=== PATIENT | male | born 1975 | race Caucasian/White ===

== ENCOUNTER 2018-03-21 16:41 | Emergency (ER) | payer MEDICAID, OTHER ==
[2018-03-21 17:21] VITALS: BP 138/88
--- NOTE | 2018-03-21 17:36 | UC ---
Throat Pain/Nasal Garrick HPI - HPI Summary HPI Summary: sinus pain and pressure x 2 weeks + nasal congestion, cough , pnd, no fever, no chills bilateral foot rash x 2 months, very itchy , red - History of Current Complaint Chief Complaint: UCGeneralIllness Stated Complaint: DIZZY/NAUSEA, DENTAL Time Seen by Provider: 03/21/18 17:13 Hx Obtained From: Patient Onset/Duration: Gradual Onset, Lasting Weeks - 2, Still Present Severity: Moderate Pain Intensity: 8 Cough: Nonproductive Associated Signs & Symptoms: Positive: Sinus Discomfort, Nasal Discharge, Rash - bilateral feet. Negative: Fever, Vomiting - Allergies/Home Medications Allergies/Adverse Reactions: Allergies Allergy/AdvReac Type Severity Reaction Status Date / Time erythromycin base Allergy GI Upset Verified 03/21/18 17:21 Home Medications: Home Medications Unsure Of Other Meds 03/21/18 [History] cloZAPine [Clozaril] 4 tab PO BEDTIME 03/21/18 [History Confirmed 03/21/18] PMH/Surg Hx/FS Hx/Imm Hx Psychological History: Schizophrenia - Surgical History Surgical History: Yes Surgery Procedure, Year, and Place: left knee. disclocated hip. hand - Family History Known Family History: Negative: Blood Disorder - Social History Alcohol Use: Occasionally Substance Use Type: Marijuana Substance Use Comment - Amount & Last Used: occasional Smoking Status (MU): Heavy Every Day Tobacco Smoker Type: Cigarettes Amount Used/How Often: 1/2-1 PPD Review of Systems Constitutional: Negative Skin: Rash Eyes: Negative ENT: Sore Throat, Ear Ache, Nasal Discharge, Sinus Congestion, Sinus Pain/ Tenderness Respiratory: Cough Cardiovascular: Negative Neurological: Headache Is Patient Immunocompromised?: No All Other Systems Reviewed And Are Negative: Yes Physical Exam Triage Information Reviewed: Yes Appearance: Well-Appearing, No Pain Distress, Well-Nourished Vital Signs: Initial Vital Signs Temp 98.3 F 03/21/18 17:14 Pulse 107 03/21/18 17:14 Resp 16 03/21/18 17:14 BP 138/88 03/21/18 17:14 Pulse Ox 98 03/21/18 17:14 Vital Signs Reviewed: Yes Eyes: Positive: Conjunctiva Clear ENT: Positive: Normal ENT inspection, Hearing grossly normal, Pharynx normal, Nasal drainage, TMs normal, Sinus tenderness Neck exam: Normal Neck: Positive: Supple, Nontender, No Lymphadenopathy Respiratory: Positive: Chest non-tender, Lungs clear, Normal breath sounds Cardiovascular: Positive: RRR, No Murmur, Pulses Normal Skin: Positive: rashes - bilateral feet: + erythema , macular rash Throat Pain/Nasal Course/Dx - Differential Dx/Diagnosis Provider Diagnoses: sinusitis. tinea pedis Discharge - Sign-Out/Discharge Documenting (check all that apply): Patient Departure - Discharge Plan Condition: Stable Disposition: HOME Prescriptions: Amoxicillin/Clavulanate TAB* [Augmentin TAB 875*] 875 mg PO BID #20 tab Ketoconazole 2 % CREAM (NF) [Nizoral 2% CREAM (NF)] 1 applic TOPICAL BID #60 gm Patient Education Materials: Athlete's Foot (ED), Sinusitis (ED) Referrals: No Primary Care Phys,NOPCP [Primary Care Provider] - 2 Weeks - Billing Disposition and Condition Condition: STABLE Disposition: Home
== END 2018-03-21 17:38 | disposition home or self-care (01) ==
LOC: UCCORT 16:41
DX: J32.9 Chronic sinusitis, unspecified (principal); B35.3 Tinea pedis; Z88.1 Allergy status to other antibiotic agents; F17.210 Nicotine dependence, cigarettes, uncomplicated
CPT/HCPCS: 99202; G0463

== ENCOUNTER 2019-06-15 10:48 | Emergency (ER) | payer OTHER ==
--- OUTSIDE RECORDS SUMMARY | 2019-06-15 11:33 | XMS REPORT | Continuity of Care Document ---
:1975 External Reference #:[id number] Author Name Brenda Carmen PA Address [address] [place] [address] Care Team Providers Name Role Phone Elisa Watson, PNP-BC, OPTOMETRIC TECHNOLOGIST, Ibclc Care Team Information Electronics Maintenance Technician [phone] - Family Problems Active Problems Provider Date Localized, primary osteoarthritis Zakia Husain PA Onset: 05/21/2018 Social History Type Date Description Comments Sex Unknown Tobacco Use Start: Unknown Patient is a current cigarette smoker, smokes every day Smoking Status Reviewed: 04/22/19 Patient is a current cigarette smoker, smokes every day ETOH Use Occasionally consumes alcohol Tobacco Use Start: Unknown Light tobacco smoker (10 or fewer cigarettes/day) Recreational Drug Use Marijuana Allergies, Adverse Reactions, Alerts Active Allergies Reaction Severity Comments Date Bee Sting 05/07/2018 Erythromycin 05/26/2018 Medications Active Medications SIG Qnty Indications Ordering Date Provider Zyrtec Allergy 1 by mouth every 30tabs L23.5 Peace Nguyen, 04/22/2019 10mg day at bedtime Tablets Aquaphor apply to the 50gm L23.5 Peace Nguyen, 04/22/2019 Ointment affected area of MD the legs twice daily for 5-7 days, as needed. Hydrocortisone apply twice to 30gm S30.861A Elisa Watson, 04/16/2019 2.5% Cream three times a PNP-BC, OPTOMETRIC TECHNOLOGIST, day Ibclc Ibuprofen take 1 tablet by 60tabs Yesenia Andrade, 01/30/2019 600mg Tablets mouth every 6-8 OPTOMETRIC TECHNOLOGIST hours as needed for pain. take with food. Dulcolax Stool 1 tab po bid as 60caps Elisa Watson, 12/04/2018 Softener needed PNP-BC, OPTOMETRIC TECHNOLOGIST, 100mg Capsules Ibclc Ventolin HFA Inhale 1 To 2 18units J45.21 Elisa Watson, 05/07/2018 108(90Base) Puffs Every 4 PNP-BC, OPTOMETRIC TECHNOLOGIST, mcg/Act Aerosol Hours as Needed Ibclc Aerochamber Plus as directed 1units J45.21 Elisa Watson, 05/07/2018 Adiel-Vu PNP-BC, OPTOMETRIC TECHNOLOGIST, Misc Ibclc Loratadine 1 by mouth every 30caps Elisa Watson, 10mg Capsules day PNP-BC, OPTOMETRIC TECHNOLOGIST, Ibclc Ranitidine 150 Maximum 1 by mouth twice 60tabs Elisa Watson, Strength a day PNP-BC, OPTOMETRIC TECHNOLOGIST, 150mg Tablets Ibclc Senna Plus 1 tab by mouth 60tabs Elisa Watson, 8.6-50mg at bedtime; december PNP-BC, OPTOMETRIC TECHNOLOGIST, Tablets increase to Ibclc 2x/day if needed. Carvedilol take one tablet 60tabs Elisa Watson, 6.25mg Tablets by mouth twice a PNP-BC, OPTOMETRIC TECHNOLOGIST, day Ibclc Epipen 2-Lc use as directed 2units Elisa Watson, 0.3mg/0.3ML as needed for PNP-BC, OPTOMETRIC TECHNOLOGIST, Solution Auto-Inject allergic Ibclc reaction Clozaril 4 at bedtime 120tabs Elisa Watson, 100mg Tablets PNP-BC, OPTOMETRIC TECHNOLOGIST, Ibclc Hydrocodone-Acetaminop Take One Tablet Unknown hen By Mouth Twice A 7.5-325mg Tablets Day Two Tablets History Medications Terbinafine HCL 1 by mouth every 84tabs Lawrence Ramos, 12/04/2018 - 250mg day for 84 days DPM 01/30/2019 Tablets Immunizations CPT Code Status Date Vaccine Lot # [id number] Given 08/20/2002 flu vaccination 20818 Given 10/25/1998 Tetnus Injection 29200 Given 06/13/1993 Influenza Virus Vaccine Vital Signs Date Vital Result Comment 04/22/2019 1:29pm BP Systolic 130 mmHg BP Diastolic 84 mmHg Body Temperature 97.4 F Heart Rate 90 /min Respiratory Rate 18 /min Height 74 inches 6'2" Weight 204.25 lb BMI (Body Mass Index) 26.2 kg/m2 BSA (Body Surface Area) 2.19 m2 [place] body weight in kilograms 86 kg O2 % BldC Oximetry 97 % 04/16/2019 3:16pm BP Systolic 120 mmHg BP Diastolic 78 mmHg Body Temperature 97.9 F Heart Rate 121 /min Respiratory Rate 19 /min Height 74 inches 6'2" Weight 206.25 lb BMI (Body Mass Index) 26.5 kg/m2 BSA (Body Surface Area) 2.20 m2 [place] body weight in kilograms 86 kg O2 % BldC Oximetry 98 % Results Test Date Facility Test Result H/L Range Note Liver Function 12/03/2018 [facility] Total Protein 6.7 g/dL Normal 6.4-8.2 1 [address] [place] [address] [phone] Albumin 4.0 g/dL Normal 3.4-5.0 Globulin 2.7 g/dL Normal 1.9-4.3 Alb/Glob 1.5 ratio Bilirubin,Total 0.6 mg/dL Normal 0.2-1.0 Bilirubin,Direct 0.1 mg/dL Normal 0.0-0.2 Bilirubin,Indirect 0.5 mg/dL Normal 0.0-0.9 Sgot/Ast 18 U/L Normal 15-37 SGPT/Alt 36 U/L Normal 12-78 Alkaline Phosphatase 79 U/L Normal 45-117 1 F20.0 (B35.1) Procedures Date Code Description Status 12/04/2018 94329 Pulse Oximetry Completed 11/24/2018 55494 Debridement Nails Any Method 6 Or More Completed 11/24/2018 00386 Pare Hyperkeratotic Lesion, Single Completed Medical Devices Description No Information Available Encounters Type Date Location Provider Dx Diagnosis Office Visit 04/16/2019 Family Medicine Elisa Watson, S30.861A Insect bite 3:30p Javier COLLADO PNP-BC, OPTOMETRIC TECHNOLOGIST, (nonvenomous) of Ibclc abdominal wall, init encntr Office Visit 01/30/2019 Family Medicine Yesenia Andrade, M25.561 Pain in right knee 1:15p Javier COLLADO OPTOMETRIC TECHNOLOGIST Office Visit 12/04/2018 Family Medicine Elisa Watson, J45.21 Mild intermittent 1:30p Javier COLLADO PNP-BC, OPTOMETRIC TECHNOLOGIST, asthma with (acute) Ibclc exacerbation J30.9 Allergic rhinitis, unspecified F17.210 Nicotine dependence, cigarettes, uncomplicated Assessments Date Code Description Provider 04/22/2019 L23.5 Allergic contact dermatitis due to Brenda Carmen PA other chemical products 04/16/2019 S30.861A Insect bite (nonvenomous) of Elisa Watson PNP-BC, OPTOMETRIC TECHNOLOGIST, abdominal wall, initial encounter Ibclc 01/30/2019 M25.561 Pain in right knee Yesenia Andrade, OPTOMETRIC TECHNOLOGIST 12/04/2018 J45.21 Mild intermittent asthma with Elisa Watson, PNP-BC, OPTOMETRIC TECHNOLOGIST, (acute) exacerbation Ibclc 12/04/2018 J30.9 Allergic rhinitis, unspecified Elisa Watson, BRODY-BC, OPTOMETRIC TECHNOLOGIST, Ibclc 12/04/2018 F17.210 Nicotine dependence, cigarettes, Elisa Watson, PNP-BC, OPTOMETRIC TECHNOLOGIST, uncomplicated Ibclc 11/24/2018 B35.1 Tinea unguium Lawrence Ramos DPM 11/24/2018 M79.675 Pain in left toe(s) Lawrence Ramos DPM 11/24/2018 M79.674 Pain in right toe(s) Lawrence Ramos DPM 11/24/2018 L85.8 Other specified epidermal Lawrence Ramos DPM thickening 11/24/2018 M79.671 Pain in right foot Lawrence Ramos DPM Plan of Treatment No Information Available Functional Status Description No Information Available Mental Status Description No Information Available Referrals Description No Information Available
--- OUTSIDE RECORDS SUMMARY | 2019-06-15 11:33 | XMS REPORT | Continuity of Care Document ---
:1975 External Reference #:[id number] Author Name Elisa Watson PNP-BC, MICA INSPECTOR, Ibclc Address [address] [place] [address] [address] [place] [address] Care Team Providers Name Role Phone Elisa Watson PNP-BC, MICA INSPECTOR, Ibclc Care Team Information Network Technical Analyst [phone] - Family Problems Active Problems Provider Date Localized, primary osteoarthritis Zakia Huasin PA Onset: 05/21/2018 Social History Type Date Description Comments Sex Unknown Tobacco Use Start: Unknown Patient is a current cigarette smoker, smokes every day Smoking Status Reviewed: 04/16/19 Patient is a current cigarette smoker, smokes every day ETOH Use Occasionally consumes alcohol Tobacco Use Start: Unknown Light tobacco smoker (10 or fewer cigarettes/day) Recreational Drug Use Marijuana Allergies, Adverse Reactions, Alerts Active Allergies Reaction Severity Comments Date Bee Sting 05/07/2018 Erythromycin 05/26/2018 Medications Active Medications SIG Qnty Indications Ordering Date Provider Hydrocortisone apply twice to 30gm S30.861A Elisa Watson, 04/16/2019 2.5% Cream three times a PNP-BC, MICA INSPECTOR, day Ibclc Ibuprofen take 1 tablet by 60tabs Yesenia Andrade, 01/30/2019 600mg Tablets mouth every 6-8 MICA INSPECTOR hours as needed for pain. take with food. Dulcolax Stool 1 tab po bid as 60caps Elisa Watson, 12/04/2018 Softener needed PNP-BC, MICA INSPECTOR, 100mg Capsules Ibclc Ventolin HFA Inhale 1 To 2 18units J45.21 Elisa Watson, 05/07/2018 108(90Base) Puffs Every 4 PNP-BC, MICA INSPECTOR, mcg/Act Aerosol Hours as Needed Ibclc Aerochamber Plus as directed 1units J45.21 Elisa Watson, 05/07/2018 Adiel-Vu PNP-BC, MICA INSPECTOR, Misc Ibclc Loratadine 1 by mouth every 30caps Elisa Watson, 10mg Capsules day PNP-BC, MICA INSPECTOR, Ibclc Ranitidine 150 Maximum 1 by mouth twice 60tabs Elisa Watson, Strength a day PNP-BC, MICA INSPECTOR, 150mg Tablets Ibclc Senna Plus 1 tab by mouth 60tabs Elisa Watson, 8.6-50mg at bedtime; december PNP-BC, MICA INSPECTOR, Tablets increase to Ibclc 2x/day if needed. Carvedilol take one tablet 60tabs Elisa Watson, 6.25mg Tablets by mouth twice a PNP-BC, MICA INSPECTOR, day Ibclc Epipen 2-Lc use as directed 2units Elisa Watson, 0.3mg/0.3ML as needed for PNP-BC, MICA INSPECTOR, Solution Auto-Inject allergic Ibclc reaction Clozaril 4 at bedtime 120tabs Elisa Watson, 100mg Tablets PNP-BC, MICA INSPECTOR, Ibclc Hydrocodone-Acetaminop Take One Tablet Unknown hen By Mouth Twice A 7.5-325mg Tablets Day Two Tablets History Medications Terbinafine HCL 1 by mouth every 84tabs Lawrence Ramos, 12/04/2018 - 250mg day for 84 days DPM 01/30/2019 Tablets Terbinafine HCL 1 by mouth every 84tabs Lawrence Ramos, 10/20/2018 - 250mg day for 84 days DPM 12/04/2018 Tablets Immunizations CPT Code Status Date Vaccine Lot # [id number] Given 08/20/2002 flu vaccination 57745 Given 10/25/1998 Tetnus Injection 24862 Given 06/13/1993 Influenza Virus Vaccine Vital Signs Date Vital Result Comment 04/16/2019 3:16pm BP Systolic 120 mmHg BP Diastolic 78 mmHg Body Temperature 97.9 F Heart Rate 121 /min Respiratory Rate 19 /min Height 74 inches 6'2" Weight 206.25 lb BMI (Body Mass Index) 26.5 kg/m2 BSA (Body Surface Area) 2.20 m2 [place] body weight in kilograms 86 kg O2 % BldC Oximetry 98 % 01/30/2019 1:13pm BP Systolic 122 mmHg BP Diastolic 84 mmHg Body Temperature 97.8 F Heart Rate 88 /min Weight 214.00 lb O2 % BldC Oximetry 96 % Results Test Date Facility Test Result H/L Range Note Liver Function 12/03/2018 [facility] Total Protein 6.7 g/dL Normal 6.4-8.2 1 [address] [place] [address] [phone] Albumin 4.0 g/dL Normal 3.4-5.0 Globulin 2.7 g/dL Normal 1.9-4.3 Alb/Glob 1.5 ratio Bilirubin,Total 0.6 mg/dL Normal 0.2-1.0 Bilirubin,Direct 0.1 mg/dL Normal 0.0-0.2 Bilirubin,Indirect 0.5 mg/dL Normal 0.0-0.9 Sgot/Ast 18 U/L Normal 15-37 SGPT/Alt 36 U/L Normal 12-78 Alkaline Phosphatase 79 U/L Normal 45-117 1 F20.0 (B35.1) Procedures Date Code Description Status 12/04/2018 04036 Pulse Oximetry Completed 11/24/2018 29701 Debridement Nails Any Method 6 Or More Completed 11/24/2018 54649 Pare Hyperkeratotic Lesion, Single Completed Medical Devices Description No Information Available Encounters Type Date Location Provider Dx Diagnosis Office Visit 04/16/2019 Family Medicine Elisa Watson, S30.861A Insect bite 3:30p [address] PNP-BC, MICA INSPECTOR, (nonvenomous) of Ibclc abdominal wall, init encntr Office Visit 01/30/2019 Family Medicine Yesenia Andrade, M25.561 Pain in right knee 1:15p [address] MICA INSPECTOR Office Visit 12/04/2018 Family Medicine Elisa Watson, J45.21 Mild intermittent 1:30p [address] PNP-BC, MICA INSPECTOR, asthma with (acute) Ibclc exacerbation J30.9 Allergic rhinitis, unspecified F17.210 Nicotine dependence, cigarettes, uncomplicated Assessments Date Code Description Provider 04/16/2019 S30.861A Insect bite (nonvenomous) of Elisa Watson PNP-BC, MICA INSPECTOR, abdominal wall, initial encounter Ibclc 01/30/2019 M25.561 Pain in right knee Yesenia Andrade, TIFFANIE 12/04/2018 J45.21 Mild intermittent asthma with Elisa Watson PNP-BC, MICA INSPECTOR, (acute) exacerbation Ibclc 12/04/2018 J30.9 Allergic rhinitis, unspecified Elisa Watson PNP-BC, MICA INSPECTOR, Ibclc 12/04/2018 F17.210 Nicotine dependence, cigarettes, Elisa Watson PNP-BC, MICA INSPECTOR, uncomplicated Ibclc 11/24/2018 B35.1 Tinea unguium Lawrence [...]
[2019-06-15 11:45] VITALS: BP 135/82
--- NOTE | 2019-06-15 12:12 | UC ---
Respiratory Complaint HPI - HPI Summary HPI Summary: 43 yo male presents with cough. He tells me that over the last 2 weeks he has had a productive cough. He was seen at [facility] a few days ago and prescribed a cough medication - per pt. Has been taking this and has not been helping. He has felt feverish, but has not taken his temperature. He smokes daily. Also has some sinus congestion and pain. Has been taking mucinex and OTC cold medication with no relief. Denies sore throat, SOB, chest pain, n/v - History of Current Complaint Chief Complaint: UCGeneralIllness Stated Complaint: COUGH,BAINS,DIZZINESS Time Seen by Provider: 06/15/19 12:12 Hx Obtained From: Patient Onset/Duration: Gradual Onset Severity Initially: Mild Severity Currently: Mild Pain Intensity: 2 Pain Scale Used: 0-10 Numeric - Allergies/Home Medications Allergies/Adverse Reactions: Allergies Allergy/AdvReac Type Severity Reaction Status Date / Time erythromycin base AdvReac GI Upset Verified 06/15/19 11:45 Home Medications: Home Medications Albuterol HFA INHALER* [Ventolin HFA Inhaler*] 2 puff INH Q4H PRN 06/15/19 [ History Confirmed 06/15/19] Loratadine 10 mg PO DAILY 06/15/19 [History Confirmed 06/15/19] guaiFENesin ER TAB [Mucinex*] 600 mg PO BID PRN 06/15/19 [History Confirmed ] PMH/Surg Hx/FS Hx/Imm Hx Psychological History: Anxiety - Surgical History Surgical History: Yes Surgery Procedure, Year, and Place: left knee; A BABY - HIP DYSPLAGIA W/ CAST - NO SURG; Rt THUMB - REPAIR TENDON - Family History Known Family History: Positive: None Negative: Blood Disorder - Social History Lives: With Family Alcohol Use: Occasionally Substance Use Type: Marijuana Substance Use Comment - Amount & Last Used: occasional Smoking Status (MU): Heavy Every Day Tobacco Smoker Type: Cigarettes Amount Used/How Often: 1/2-1 PPD Review of Systems All Other Systems Reviewed And Are Negative: No Constitutional: Positive: Fever Skin: Positive: Negative Eyes: Positive: Negative ENT: Positive: Nasal Discharge, Sinus Congestion Respiratory: Positive: Cough Cardiovascular: Positive: Negative Gastrointestinal: Positive: Negative Neurological: Positive: Negative Psychological: Positive: Negative Physical Exam - Summary Physical Exam Summary: GENERAL: NAD. WDWN. No pain distress. SKIN: No rashes, sores, lesions, or open wounds. HEENT: Head: AT/NC Eyes: Conjunctiva clear without inflammation or discharge. Ears: Hearing grossly normal. TMs intact, no bulging, erythema, or edema. Nose: Nasal mucosa pink and moist. TTP maxillary > frontal sinus. Throat: Posterior oropharynx without exudates, erythema, or tonsillar enlargement. Uvula midline. NECK: Supple. Nontender. No lymphadenopathy. CHEST: Moderate wheezing throughout. No r/r. No accessory muscle use. Breathing comfortably and in no distress. CV: RRR. Pulses intact. Cap refill <2seconds NEURO: Alert. PSYCH: Age appropriate behavior. Triage Information Reviewed: Yes Vital Signs: Initial Vital Signs Temp 97.9 F 06/15/19 11:41 Pulse 97 06/15/19 11:41 Resp 18 06/15/19 11:41 BP 135/82 06/15/19 11:41 Pulse Ox 97 06/15/19 11:41 Vital Signs Reviewed: Yes Diagnostics - Radiology CXR Radiology Interpretation Completed By: Radiologist Summary of Radiographic Findings: IMPRESSION: No acute cardiopulmonary process by radiograph. Respiratory Course/Dx - Course Course Of Treatment: CXR as above. In the clinic pt was given a duoneb treatment and dexamethasone for his suspected bronchitis. Will rx for anbx and prednisone. He does have albuterol inhaler at home - advised to keep using this - Differential Dx/Diagnosis Provider Diagnosis: Bronchitis Discharge ED - Sign-Out/Discharge Documenting (check all that apply): Patient Departure All imaging exams completed and their final reports reviewed: Yes - Discharge Plan Condition: Stable Disposition: HOME Prescriptions: Amoxicillin/Clavulanate TAB* [Augmentin TAB 875*] 875 mg PO BID #14 tab predniSONE TAB* [Deltasone 20 MG TAB*] 40 mg PO DAILY #10 tab Patient Education Materials: Acute Bronchitis (ED) Forms: *Gen. Provider Communication Referrals: Elisa Watson NP [Primary Care Provider] - Additional Instructions: If you develop a fever, shortness of breath, chest pain, new or worsening symptoms - please call your PCP or go to the ED immediately. Continue using your inhaler at home as prescribed - Billing Disposition and Condition Condition: STABLE Disposition: Home - Attestation Statements Provider Attestation: I was available for consult. This patient was seen by the PETE. The patient was not presented to, seen by, or examined by me. -Sukumar
[2019-06-15] MEDS ORDERED: Dexamethasone TAB* 4 MG PO ONE (12:16)
[2019-06-15] MEDS ORDERED: Albuterol/Ipratropium NEB.SOL* Albuterol 2.5 MG/Ipratropium 0.5 MG 3 ML INH ONE (12:16)
== END 2019-06-15 12:51 | disposition home or self-care (01) ==
LOC: UCCORT 10:48
DX: J40 Bronchitis, not specified as acute or chronic (principal); F17.210 Nicotine dependence, cigarettes, uncomplicated; R09.81 Nasal congestion; R09.89 Other specified symptoms and signs involving the circulatory and respiratory systems; Z88.1 Allergy status to other antibiotic agents
CPT/HCPCS: 71046; 99212; A9270-GY; G0463; J8540

== ENCOUNTER 2019-10-10 11:13 | Emergency (ER) | payer OTHER ==
--- OUTSIDE RECORDS SUMMARY | 2019-10-10 11:22 | XMS REPORT | Continuity of Care Document ---
:1975 External Reference #:[id number] Author Name Wilian Anders MD Address [address] [place] [id number] Care Team Providers Name Role Phone Elisa Watson, PNP-BC, KINDERGARTEN CLASSROOM TEACHER, Ibclc Care Team Information Road Tester [phone] - Family Problems Active Problems Provider Date Localized, primary osteoarthritis Zakia Husain PA Onset: 05/21/2018 Social History Type Date Description Comments Sex Unknown Tobacco Use Start: Unknown Patient is a current cigarette smoker, smokes every day Smoking Status Reviewed: 09/14/19 Patient is a current cigarette smoker, smokes every day ETOH Use Occasionally consumes alcohol Tobacco Use Start: Unknown Light tobacco smoker (10 or fewer cigarettes/day) Recreational Drug Use Marijuana Allergies, Adverse Reactions, Alerts Active Allergies Reaction Severity Comments Date Bee Sting 05/07/2018 Erythromycin 05/26/2018 Medications Active Medications SIG Qnty Indications Ordering Date Provider Saline Nasal [place] 2 sprays 1units J06.9 Wilian Anders MD 09/14/2019 0.65% intranasal every Solution 2 hours congestion or nasal dryness Robitussin 12 Hour 10ml by mouth 178ml J06.9 Wilian Anders MD 09/14/2019 Cough Relief every 12 hours as 30mg/5ML needed Suer Albuterol Sulfate nebulized every 4 2boxes J44.9 Elisa Watson, 08/12/2019 hours as needed PNP-BC, KINDERGARTEN CLASSROOM TEACHER, (2.5mg/3ML) 0.083% Ibclc Nebulizer Nebulizer to be used as 1units J44.9 Elisa Watson, 08/12/2019 Device directed PNP-BC, KINDERGARTEN CLASSROOM TEACHER, Ibclc Nebulizer as directed 1units J44.9 Elisa Watson, 08/12/2019 Kit/Tubing/Mouthpiece PNP-BC, KINDERGARTEN CLASSROOM TEACHER, Ibclc Kit SM Acid Shipping Point Inspector Take One Tablet 60tabs Elisa Watson, 07/23/2019 Maximum Strength By Mouth Twice A PNP-BC, KINDERGARTEN CLASSROOM TEACHER, 150mg Day Ibclc Tablets Senna-S Take One Tablet 60tabs Elisa Watson, 07/03/2019 8.6-50mg Tablets By Mouth AT PNP-BC, KINDERGARTEN CLASSROOM TEACHER, Bedtime,December Ibclc Increase To Two Times A Day If Needed Hydrocortisone apply twice to 30gm S30.861A Elisa Watson, 04/16/2019 2.5% Cream three times a day PNP-BC, KINDERGARTEN CLASSROOM TEACHER, Ibclc Ibuprofen take 1 tablet by 60tabs Elisa Watson, 01/30/2019 600mg Tablets mouth every 6-8 PNP-BC, KINDERGARTEN CLASSROOM TEACHER, hours as needed Ibclc for pain. take with food. Dulcolax Stool 1 tab by mouth 60caps Elisa Watson, 12/04/2018 Softener twice a day as PNP-BC, KINDERGARTEN CLASSROOM TEACHER, 100mg Capsules needed Ibclc Aerochamber Plus as directed 1units J45.21 Elisa Watson, 05/07/2018 Adiel-Vu PNP-BC, KINDERGARTEN CLASSROOM TEACHER, Misc Ibclc Ventolin HFA Inhale 1 To 2 18units J45.21 Aftab, 05/07/2018 108(90Base) Puffs Every 4 MD Christina, mcg/Act Aerosol Hours as Needed PHD Loratadine take one tablet 30tabs Elisa Watson, 10mg Tablets by mouth every PNP-BC, KINDERGARTEN CLASSROOM TEACHER, day Ibclc Carvedilol take one tablet 60tabs Elisa Watson, 6.25mg Tablets by mouth twice a PNP-BC, KINDERGARTEN CLASSROOM TEACHER, day Ibclc Epipen 2-Lc use as directed 2units Elisa Watosn, 0.3mg/0.3ML as needed for PNP-BC, KINDERGARTEN CLASSROOM TEACHER, Solution Auto-Inject allergic reaction Ibclc Clozaril 4 at bedtime 120tabs Elisa Watson, 100mg Tablets PNP-BC, KINDERGARTEN CLASSROOM TEACHER, Ibclc Bupropion Krystal, Hydrochloride ER (XL) Angelica 150mg Tablets ER 24HR Nicotine Krystal, 21mg/24HR Angelica Patches 24HR History Medications Stool Softener/Laxative Take One Tablet 60tabs Elisa Watson, 05/04/2019 - By Mouth Every PNP-TIFFANIE MUHAMMAD, 07/03/2019 50-8.6mg Tablets Evening; December Ibclc Increase To Two Tablets Daily If Needed Zyrtec Allergy 1 by mouth every 30tabs L23.5 Patrick, 04/22/2019 - 10mg Tablets day at bedtime MD Peace 05/07/2019 Aquaphor apply to the 50gm L23.5 Patrick 04/22/2019 - Ointment affected area of MD Peace 05/02/2019 the legs twice daily for 5-7 days, as needed. Immunizations CPT Code Status Date Vaccine Lot # [id number] Given 08/12/2019 Pneumovax Injection [id number] Given 08/12/2019 Influenza Virus Vaccine, Quadrivalent, 36 Mos+, [id number] 19034 Given 08/20/2002 flu vaccination 18292 Given 10/25/1998 Tetnus Injection 00315 Given 06/13/1993 Influenza Virus Vaccine Vital Signs Date Vital Result Comment 09/14/2019 1:27pm BP Systolic 126 mmHg BP Diastolic 70 mmHg Body Temperature 97.5 F Heart Rate 82 /min Respiratory Rate 18 /min Height 73.5 inches 6'1.50" Weight 198.38 lb BMI (Body Mass Index) 25.8 kg/m2 BSA (Body Surface Area) 2.16 m2 [place] body weight in kilograms 85 kg O2 % BldC Oximetry 98 % 08/12/2019 10:17am BP Systolic 126 mmHg BP Diastolic 82 mmHg Body Temperature 98.8 F Heart Rate 102 /min Respiratory Rate 18 /min Height 73.5 inches 6'1.50" Weight 208.00 lb BMI (Body Mass Index) 27.1 kg/m2 BSA (Body Surface Area) 2.20 m2 [place] body weight in kilograms 85 kg Results Test Acquired Date Facility Test Result H/L Range Note Influenza A/B 07/21/2019 [facility] Influenza A Negative (Negative) [address] Antigen [place], [place] [id number] [phone] Influenza B Antigen Negative (Negative) 2 Ua RFX Micro & Culture 05/06/2019 [facility] Urine Color YELLOW Yellow [address] [place] [address] [phone] Urine Clarity SL CLOUDY Clear Urine Glucose - Dipstick NEGATIVE mg/dL Negative Urine Bilirubin - Dipstick NEGATIVE Negative Urine Ketone NEGATIVE mg/dL Negative Urine Specific [place] 1.020 Normal 1.010-1.030 Urine Blood NEGATIVE 0-2 Urine PH 5.0 Low 6.5-7.5 Urine Protein - Dipstick NEGATIVE mg/dL Negative Urine Urobilinogen - Dipstick 0.2 E.U./dL Normal 0.2-1.0 Urine Nitrite - Dipstick NEGATIVE Negative Urine Leuk Esterase NEGATIVE Negative Source: URINE, CLEAN CAT <SEE NOTE> 4 CBC W/Automated 05/06/2019 [facility] White Blood 7.3 K/uL Normal 3.4-10.[address] [place] [address] [phone] Red Blood Count 5.11 M/uL Normal 4.20-5.80 Hemoglobin 15.5 gm/dL Normal 12.8-17.0 Hematocrit 44.3 % Normal 38.0-48.0 Mean Cell Volume 86.7 fl Normal 80.0-96.0 Mean Corpuscular HGB 30.3 pg Normal 27.0-33.0 Mean Corpuscular HGB Conc 35.0 g/dL Normal 31.7-36.0 Platelet Count 213 K/uL Normal 155-360 Red Cell Distri Width SD 40.5 fl Normal 36-51 Red Cell Distri Width %CV 12.9 % Normal 11.6-15.8 Mean Platelet Volume 10.0 fl Normal 6.6-10.6 Neut% 66.1 % Normal 33.0-73.0 Lymph % 21.4 % Normal 20.0-42.0 [place] % 10.2 % High 0.0-10.0 Eo% 1.5 % Normal 0.0-6.6 Bas% 0.3 % Normal 0.0-1.1 Immature Grans 0.5 % Normal 0.0-5.0 NRBC % 0.0 /100WBC < 10/ 100 WBC Neut# 4.82 K/uL Normal 1.8-7.0 Lymph # 1.56 K/uL Normal 1.0-4.0 [place] # 0.74 K/uL Normal 0.0-0.8 Eos # 0.11 K/uL Normal 0.0-0.5 Baso # 0.02 K/uL Normal 0.0-0.1 Immature Grans Absolute 0.04 K/uL NRBC # 0.00 K/uL 1 DIZZY, HOT/COLD, VOMITING 2 Please Note: A POSITIVE result for influenza A and/or B antigen does not rule out a co-infection with other pathogens or identify any specific influenza A virus subtype. A NEGATIVE result for influenza A and/or B antigen does not preclude influenza virus infection and should not be the sole basis for treatment or other management decisions, since the antigen present in the specimen may be below the detection limit of the test. A NEGATIVE result is PRESUMPTIVE and it is recommended these results be confirmed by virus culture or an FDA-cleared influenza A and B molecular assay. Method: BD Veritor Chromatographic immunoassay 3 NAUSEA,DIZZINESS,POSS BRONCHITIS 4 URINE, CLEAN CATCH Procedures Date Code Description Status 07/29/2019 81238 Debridement Nails Any Method 1-5 Completed 07/29/2019 38912 Pare Hyperkeratotic Lesion, 2-4 Completed 04/24/2019 30827 Debridement Nails Any Method 1-5 Completed Medical Devices Description No Information Available Encounters Type Date Location Provider Dx Diagnosis Office Visit 08/12/2019 Family Medicine Elisa Watson, J44.9 Chronic obstructive 10:[address]a [address] PNP-BC, KINDERGARTEN CLASSROOM TEACHER, pulmonary disease, Ibclc unspecified H90.12 Condctv hear loss, uni, left ear, w unrestr hear cntra side F17.210 Nicotine dependence, cigarettes, uncomplicated Z23 Encounter for immunization Z71.6 Tobacco abuse counseling Office Visit 04/22/2019 1:30p Family Medicine Brenda Carmen, L23.[address] PA dermatitis due to other chemical products Office Visit 04/16/2019 3:30p Family Medicine Elisa Watson, S30.861A Insect bite [address] PNP-BC, KINDERGARTEN CLASSROOM TEACHER, (nonvenomous) of Ibclc abdominal wall, init encntr Assessments Date Code Description Provider 09/14/2019 J06.9 Acute upper respiratory infection, Wilian Anders MD unspecified 09/14/2019 K02.9 Dental caries, unspecified Wilian Anders MD 08/12/2019 J44.9 Chronic obstructive pulmonary Elisa Watson, PNP-BC, KINDERGARTEN CLASSROOM TEACHER, disease, unspecified Ibclc 08/12/2019 H90.12 Conductive hearing loss, Elisa Watson PNP-BC, KINDERGARTEN CLASSROOM TEACHER, unilateral, left ear, with Ibclc unrestricted hearing on the contralateral side 08/12/2019 F17.210 Nicotine dependence, cigarettes, Elisa Watson PNP-BC, KINDERGARTEN CLASSROOM TEACHER, uncomplicated Ibclc 08/12/2019 Z23 Encounter for immunization Elisa Watson PNP-BC, KINDERGARTEN CLASSROOM TEACHER, Ibclc 08/12/2019 Z71.6 Tobacco abuse counseling Elisa Watson PNP-BC, KINDERGARTEN CLASSROOM TEACHER, Ibclc 07/29/2019 B35.1 Tinea unguium Lawrence Ramos, DP 07/29/2019 M79.674 Pain in right toe(s) Lawrence Ramos, DP 07/29/2019 L84 Corns and callosities Lawrence Ramos, DP 07/29/2019 L85.8 Other specified epidermal Lawrence Ramos, DP thickening 07/29/2019 M79.671 Pain in right foot Lawrence Ramos DP 07/29/2019 Q66.72 Congenital pes cavus, left foot Lawrence Ramos, DP 07/29/2019 Q66.71 Congenital pes cavus, right foot Lawrence Ramos, DPM 07/29/2019 M20.12 Hallux valgus (acquired), left foot Lawrence Ramos, DPM 07/29/2019 M20.11 Hallux valgus (acquired), right Lawrence Ramos, AKASH foot 04/24/2019 B35.1 Tinea unguium Lawrence Raoms, DP 04/24/2019 M79.674 Pain in right toe(s) Lawrence Ramos DP 04/24/2019 M79.675 Pain in left toe(s) Lawrence Ramos DPM 04/24/2019 Q66.7 Congenital pes cavus Lawrence Ramos DP 04/24/2019 M20.12 Hallux valgus (acquired), left foot Lawrence Ramos DPM 04/24/2019 M20.11 Hallux valgus (acquired), right Lawrence Ramos DP foot 04/22/2019 L23.5 Allergic contact dermatitis due to Brenda Cramen PA other chemical products 04/16/2019 S30.861A Insect bite (nonvenomous) of Elisa Watson, PNP-BC, KINDERGARTEN CLASSROOM TEACHER, abdominal wall, initial encounter Ibclc Plan of Treatment Future Appointment(s):11/05/2019 1:00 pm - Lawrence Ramos DPM at Podiatry Whgqdd8309/14/2019 - Wilian Anders MDJ06.9 Acute upper respiratory infection, unspecifiedNew Medication:Saline Nasal [place] 0.65 % - 2 sprays intranasal every 2 hours congestion or nasal drynessRobitussin 12 Hour Cough Relief 30 mg/5ML - 10ml by mouth every 12 hours as maznzuI00.9 Dental caries, unspecified Functional Status Description No Information Available Mental Status Description No Information Available Referrals Refer to Reason for Referral Status Appt Date Lawrence Ramos DPM Created [address] [place] [address] [phone]
[2019-10-10 12:12] VITALS: BP 135/87
--- NOTE | 2019-10-10 12:23 | UC ---
Dental HPI - HPI Summary HPI Summary: Pt presents with c/o tender,swollen, itchy lower gums that began immediately post tooth extraction on 10/07/19, Pt had 7 teeth extracted at [facility]. Pt states that gums are itchy, painful and swollen. - History of Current Complaint Chief Complaint: UCDentalProblem Stated Complaint: ORAL Time Seen by Provider: 10/10/19 12:13 Hx Obtained From: Patient Onset/Duration: Sudden Onset, Lasting Days, Still Present Severity: Severe Pain Intensity: 10 Aggravating Factor(s): Heat, Cold, Chewing Related History: Previous Dental Care on Same Tooth, Other - post teeth extraction - Allergies/Home Medications Allergies/Adverse Reactions: Allergies Allergy/AdvReac Type Severity Reaction Status Date / Time erythromycin base AdvReac GI Upset Verified 10/10/19 12:10 Home Medications: Home Medications Naproxen TAB* [Naprosyn 375 mg TAB*] 500 mg PO Q8H PRN 10/10/19 [History Confirmed 10/10/19] PMH/Surg Hx/FS Hx/Imm Hx Previously Healthy: Yes - Surgical History Surgical History: Yes Surgery Procedure, Year, and Place: left knee; A BABY - HIP DYSPLAGIA W/ CAST - NO SURG; Rt THUMB - REPAIR TENDON - Family History Known Family History: Positive: Cardiac Disease Negative: Blood Disorder - Social History Occupation: Unemployed Lives: With Family Alcohol Use: Occasionally Substance Use Type: Marijuana Substance Use Comment - Amount & Last Used: occasional Smoking Status (MU): Heavy Every Day Tobacco Smoker Type: Cigarettes Amount Used/How Often: 1/2-1 PPD Have You Smoked in the Last Year: Yes Review of Systems All Other Systems Reviewed And Are Negative: Yes Constitutional: Positive: Negative Skin: Positive: Negative Eyes: Positive: Negative ENT: Positive: Dental Pain, Other - recent dental trauma Respiratory: Positive: Other - wheezing Cardiovascular: Positive: Negative Gastrointestinal: Positive: Negative Genitourinary: Positive: Negative Motor: Positive: Negative Neurovascular: Positive: Negative Musculoskeletal: Positive: Negative Neurological: Positive: Negative Psychological: Positive: Negative Is Patient Immunocompromised?: No Physical Exam Triage Information Reviewed: Yes Appearance: Pain Distress Vital Signs: Initial Vital Signs Temp 97.2 F 10/10/19 12:08 Pulse 105 10/10/19 12:08 Resp 17 10/10/19 12:08 BP 135/87 10/10/19 12:08 Pulse Ox 97 10/10/19 12:08 Vital Signs Reviewed: Yes Eye Exam: Normal ENT Exam: Normal Dental: Positive: Other: - swelling of lower gum, mild erythema, evidence of teeth extraction. Neck exam: Normal Respiratory: Positive: Decreased breath sounds, Wheezing Cardiovascular: Positive: Tachycardia Musculoskeletal Exam: Normal Neurological Exam: Normal Psychological Exam: Normal Skin Exam: Normal Dental Complaint Course/Dx - Differential Dx/Diagnosis Differential Diagnosis/Dx: Peridontic Disease, Post Extraction Pain Provider Diagnosis: Status post tooth extraction, Gum inflammation, Wheezing Discharge ED - Sign-Out/Discharge Documenting (check all that apply): Patient Departure All imaging exams completed and their final reports reviewed: No Studies - Discharge Plan Condition: Stable Disposition: HOME Prescriptions: Amoxicillin PO (*) [Amoxicillin 875 MG (*)] 875 mg PO Q12H #20 tab Lidocaine 2% VISCOUS* [Xylocaine 2% Viscous*] 15 ml SWISH SPIT Q4H PRN #1 btl PRN Reason: Pain - Mild predniSONE 10 mg TAB [Deltasone 10 MG TAB*] 30 mg PO DAILY #12 tab Patient Education Materials: Acute Dental Trauma (ED), Tooth Extraction (DC) Referrals: Elisa Watson NP [Primary Care Provider] - If Needed Additional Instructions: Please follow up with your Dental care provider as soon as possible. - Billing Disposition and Condition Condition: STABLE Disposition: Home
== END 2019-10-10 12:35 | disposition home or self-care (01) ==
LOC: UCCORT 11:13
DX: K05.10 Chronic gingivitis, plaque induced (principal); R06.2 Wheezing; F17.210 Nicotine dependence, cigarettes, uncomplicated; Z98.890 Other specified postprocedural states; Z88.1 Allergy status to other antibiotic agents
CPT/HCPCS: 99212; G0463

== ENCOUNTER 2019-11-10 12:59 | Emergency (ER) | payer OTHER ==
--- OUTSIDE RECORDS SUMMARY | 2019-11-10 13:28 | XMS REPORT | Continuity of Care Document ---
:1975 External Reference #:[id number] Author Name Lawrence Ramos DPM (transmitted by agent of provider Lennie Shine) Address [address] [place] [id number] Care Team Providers Name Role Phone Elisa Watson, PNP-BC, BUMBOATER, Ibclc Care Team Information Accounts Payables Clerk - Family Problems Active Problems Provider Date Localized, primary osteoarthritis Zakia Husain PA Onset: 05/21/2018 Social History Type Date Description Comments Sex Unknown Tobacco Use Start: Unknown Patient is a current cigarette smoker, smokes every day Smoking Status Reviewed: 11/05/19 Patient is a current cigarette smoker, smokes every day ETOH Use Occasionally consumes alcohol Tobacco Use Start: Unknown Light tobacco smoker (10 or fewer cigarettes/day) Recreational Drug Use Marijuana Allergies, Adverse Reactions, Alerts Active Allergies Reaction Severity Comments Date Bee Sting 05/07/2018 Erythromycin 05/26/2018 Medications Active Medications SIG Qnty Indications Ordering Date Provider Saline Nasal [place] 2 sprays 1units J06.9 Wilian Anders MD 09/14/2019 0.65% intranasal every Solution 2 hours congestion or nasal dryness Robitussin 12 Hour 10ml by mouth 178ml J06.9 Wilian Anders MD 09/14/2019 Cough Relief every 12 hours as 30mg/5ML needed Suer Albuterol Sulfate nebulized every 4 2boxes J44.9 Elisa Watson, 08/12/2019 hours as needed PNP-BC, BUMBOATER, (2.5mg/3ML) 0.083% Ibclc Nebulizer Nebulizer to be used as 1units J44.9 Elisa Watson, 08/12/2019 Device directed PNP-BC, BUMBOATER, Ibclc Nebulizer as directed 1units J44.9 Elisa Watson, 08/12/2019 Kit/Tubing/Mouthpiece PNP-BC, BUMBOATER, Ibclc Kit SM Acid Product Safety Professional Take One Tablet 60tabs Elisa Watson, 07/23/2019 Maximum Strength By Mouth Twice A PNP-BC, BUMBOATER, 150mg Day Ibclc Tablets Senna-S Take One Tablet 60tabs Elisa Watson, 07/03/2019 8.6-50mg Tablets By Mouth AT PNP-BC, BUMBOATER, Bedtime,December Ibclc Increase To Two Times A Day If Needed Hydrocortisone apply twice to 30gm S30.861A Elisa Watson, 04/16/2019 2.5% Cream three times a day PNP-BC, BUMBOATER, Ibclc Ibuprofen take 1 tablet by 60tabs Elisa Watson, 01/30/2019 600mg Tablets mouth every 6-8 PNP-BC, BUMBOATER, hours as needed Ibclc for pain. take with food. Dulcolax Stool 1 tab by mouth 60caps Elisa Watson, 12/04/2018 Softener twice a day as PNP-BC, BUMBOATER, 100mg Capsules needed Ibclc Ventolin HFA Inhale 1 To 2 18units J45.21 Aftab, 05/07/2018 108(90Base) Puffs Every 4 MD Christina, mcg/Act Aerosol Hours as Needed PHD Aerochamber Plus as directed 1units J45.21 Elisa Watson, 05/07/2018 Adiel-Vu PNP-BC, BUMBOATER, Misc Ibclc Loratadine take one tablet 30tabs Elisa Watson, 10mg Tablets by mouth every PNP-BC, BUMBOATER, day Ibclc Carvedilol take one tablet 60tabs Elisa Watson, 6.25mg Tablets by mouth twice a PNP-BC, BUMBOATER, day Ibclc Epipen 2-Lc use as directed 2units Elisa Watson, 0.3mg/0.3ML as needed for PNP-BC, BUMBOATER, Solution Auto-Inject allergic reaction Ibclc Clozaril 4 at bedtime 120tabs Elisa Watson, 100mg Tablets PNP-BC, BUMBOATER, Ibclc Bupropion Krystal, Hydrochloride ER (XL) Angelcia 150mg Tablets ER 24HR Nicotine Krystal, 21mg/24HR Angelica Patches 24HR Immunizations CPT Code Status Date Vaccine Lot # [id number] Given 08/12/2019 Pneumovax Injection [id number] 18250 Given 08/12/2019 Influenza Virus Vaccine, Quadrivalent, 36 Mos+, [id number] 07748 Given 08/20/2002 flu vaccination 16551 Given 10/25/1998 Tetnus Injection 51556 Given 06/13/1993 Influenza Virus Vaccine Vital Signs Date Vital Result Comment 11/05/2019 1:36pm BP Systolic 137 mmHg BP Diastolic 87 mmHg Body Temperature 98.1 F Heart Rate 85 /min Height 73.5 inches 6'1.50" Weight 199.25 lb BMI (Body Mass Index) 25.9 kg/m2 BSA (Body Surface Area) 2.16 m2 [place] body weight in kilograms 85 kg O2 % BldC Oximetry 97 % 09/14/2019 1:27pm BP Systolic 126 mmHg BP Diastolic 70 mmHg Body Temperature 97.5 F Heart Rate 82 /min Respiratory Rate 18 /min Height 73.5 inches 6'1.50" Weight 198.38 lb BMI (Body Mass Index) 25.8 kg/m2 BSA (Body Surface Area) 2.16 m2 [place] body weight in kilograms 85 kg O2 % BldC Oximetry 98 % Results Test Acquired Date Facility Test Result H/L Range Note Influenza A/B 07/21/2019 [facility] Influenza A Negative (Negative) [address] [place] [address] [phone] Influenza B Antigen Negative (Negative) 2 1 DIZZY, HOT/COLD, VOMITING 2 Please Note: [...] influenza A and B molecular assay. Method: MamaBear App Chromatographic immunoassay Procedures Date Code Description Status 11/05/2019 20888 Debridement Nails Any Method 6 Or More Completed 11/05/2019 56470 Pare Hyperkeratotic Lesion, > 4 Completed 07/29/2019 44177 Debridement Nails Any Method 1-5 Completed 07/29/2019 76658 Pare Hyperkeratotic Lesion, 2-4 Completed Medical Devices Description No Information Available Encounters Type Date Location Provider Dx Diagnosis Office Visit 09/14/2019 Family Medicine Wilian Anders MD J06.9 Acute upper 1:30p [address] respiratory infection, unspecified K02.9 Dental caries, unspecified Office Visit 08/12/2019 10:45a Family Medicine Elisa Watson J44.[address] PNP-BC, BUMBOATER, obstructive Ibclc pulmonary disease, unspecified H90.12 Condctv hear loss, uni, left ear, w unrestr hear cntra side F17.210 Nicotine dependence, cigarettes, uncomplicated Z23 Encounter for immunization Z71.6 Tobacco abuse counseling Assessments Date Code Description Provider 11/05/2019 B35.1 Tinea unguium Lawrence Ramos, DPM 11/05/2019 L84 Corns and callosities Lawrence Ramos, DPM 11/05/2019 L85.8 Other specified epidermal thickening Lawrence Ramos, DPM 11/05/2019 Q66.72 Congenital pes cavus, left foot Lawrence Ramos, DPM 11/05/2019 Q66.71 Congenital pes cavus, right foot Lawrence Ramos, DPM 11/05/2019 M20.12 Hallux valgus (acquired), left foot Lawrence Ramos, DPM 11/05/2019 M20.11 Hallux valgus (acquired), right foot Lawrence Ramos, DPM 09/14/2019 J06.9 Acute upper respiratory infection, Wilian Anders MD unspecified 09/14/2019 K02.9 Dental caries, unspecified Wilian Anders MD 08/12/2019 J44.9 Chronic obstructive pulmonary Elisa Watson PNP-BC, BUMBOATER, disease, unspecified Ibclc 08/12/2019 H90.12 Conductive hearing loss, unilateral, Elisa Watson PNP-BC , BUMBOATER, left ear, with unrestricted hearing Ibclc on the contralateral side 08/12/2019 F17.210 Nicotine dependence, cigarettes, Elisa Watson PNP-BC, BUMBOATER, uncomplicated Ibclc 08/12/2019 Z23 Encounter for immunization Elisa Watson PNP-SABINA, BUMBOATER, Ibclc 08/12/2019 Z71.6 Tobacco abuse counseling Elisa Watson PNP-BC, BUMBOATER, Ibclc 07/29/2019 B35.1 Tinea unguium Lawrence Ramos DPM 07/29/2019 M79.674 Pain in right toe(s) Lawrence Ramos DPM 07/29/2019 L84 Corns and callosities Lawrence Ramos DPM 07/29/2019 L85.8 Other specified epidermal thickening Lawrence Ramos DPM 07/29/2019 M79.671 Pain in right foot Lawrence Ramos DPM 07/29/2019 Q66.72 Congenital pes cavus, left foot Lawrence Ramos DPM 07/29/2019 Q66.71 Congenital pes cavus, right foot Lawrence Ramos DPM 07/29/2019 M20.12 Hallux valgus (acquired), left foot Lawrence Ramos DPM 07/29/2019 M20.11 Hallux valgus (acquired), right foot Lawrence Ramos DPM Plan of Treatment Future Appointment(s):02/11/2020 1:40 pm - Lawrence Ramos DPM at Podiatry [facility]2011/05/2019 - Lawrence Ramos DPMB35.1 Tinea unguiumComments:All the nails were trimmed in length with a sterile nail nipper. The leading edges were debrided with a nail bur and electric podiatry drill. The debris under the edges of the great toenails was debrided with a sterile curet.The thick fungal nail (S) 1 left and 1-3 right was (were) reduced to a morenormal thickness with a nail bur and podiatry drill.L84 Corns and callositiesComments:The callous tissue was sanded down with a sanding bur and electric podiatry drill.L85.8 Other specified epidermal thickeningComments:The IPK site was debrided thoroughly with a small standing on a bur and the electric podiatry drill. The site was offloaded with a felt dressing. The site was covered with moleskin.Q66.72 Congenital pes cavus, left footQ66.71 Congenital pes cavus, right footM20.12 Hallux valgus (acquired), left footM20.11 Hallux valgus ( acquired), right footAllFollow up:Follow-up in 3 months for routine podiatric care Functional Status Description No Information Available Mental Status Description No Information Available Referrals Refer to Reason for Referral Status Appt Date Lawrence Ramos DPM Created [address] [place] [address] [phone]
--- OUTSIDE RECORDS SUMMARY | 2019-11-10 13:29 | XMS REPORT | Continuity of Care Document ---
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 Problems Active Problems Provider Date [...] Qnty Indications Ordering Date Provider Saline Nasal Jackson 2 sprays 1units J06.9 Wilian Anders MD 09/14/2019 0.65% intranasal every Solution 2 hours congestion or nasal dryness Robitussin 12 Hour 10ml by mouth 178ml J06.9 Wilian Anders MD 09/14/2019 Cough Relief every 12 hours as 30mg/5ML needed Suer Albuterol Sulfate nebulized every 4 2boxes J44.9 Elisa Watson, 08/12/2019 hours as needed PNP-BC, HANDS AND DIAL INSPECTOR, (2.5mg/3ML) 0.083% Ibclc Nebulizer Nebulizer to be used as 1units J44.9 Elisa Watson, 08/12/2019 Device directed PNP-BC, HANDS AND DIAL INSPECTOR, Ibclc Nebulizer as directed 1units J44.9 Elisa Watson, 08/12/2019 Kit/Tubing/Mouthpiece PNP-BC, HANDS AND DIAL INSPECTOR, Ibclc Kit SM Acid [employer]orer Take One Tablet 60tabs Elisa Watson, 07/23/2019 Maximum Strength By Mouth Twice A PNP-BC, HANDS AND DIAL INSPECTOR, 150mg Day Ibclc Tablets Senna-S Take One Tablet 60tabs Elisa Watson, 07/03/2019 8.6-50mg Tablets By Mouth AT PNP-BC, HANDS AND DIAL INSPECTOR, Bedtime,December Ibclc Increase To Two Times A Day If Needed Hydrocortisone apply twice to 30gm S30.861A Elisa Watson, 04/16/2019 2.5% Cream three times a day PNP-BC, HANDS AND DIAL INSPECTOR, Ibclc Ibuprofen take 1 tablet by 60tabs Elisa Watson, 01/30/2019 600mg Tablets mouth every 6-8 PNP-BC, HANDS AND DIAL INSPECTOR, hours as needed Ibclc for pain. take with food. Dulcolax Stool 1 tab by mouth 60caps Elisa Watson, 12/04/2018 Softener twice a day as PNP-BC, HANDS AND DIAL INSPECTOR, 100mg Capsules needed Ibclc Ventolin HFA Inhale 1 To 2 18units J45.21 Aftab, 05/07/2018 108(90Base) Puffs Every 4 MD Christina, mcg/Act Aerosol Hours as Needed PHD Aerochamber Plus as directed 1units J45.21 Elisa Watson, 05/07/2018 Adiel-Vu PNP-BC, HANDS AND DIAL INSPECTOR, Misc Ibclc Loratadine take one tablet 30tabs Elisa Watson, 10mg Tablets by mouth every PNP-BC, HANDS AND DIAL INSPECTOR, day Ibclc Carvedilol take one tablet 60tabs Elisa Watson, 6.25mg Tablets by mouth twice a PNP-BC, HANDS AND DIAL INSPECTOR, day Ibclc Epipen 2-Lc use as directed 2units Elisa Watson, 0.3mg/0.3ML as needed for PNP-BC, HANDS AND DIAL INSPECTOR, Solution Auto-Inject allergic reaction Ibclc Clozaril 4 at bedtime 120tabs Elisa Watson, 100mg Tablets PNP-BC, HANDS AND DIAL INSPECTOR, Ibclc Bupropion Krystal, Hydrochloride ER (XL) Angelica 150mg Tablets ER 24HR Nicotine Krystal, 21mg/24HR Angelica Patches 24HR Immunizations CPT Code Status Date Vaccine Lot # [id number] Given 08/12/2019 Pneumovax Injection [id number] Given 08/12/2019 Influenza Virus Vaccine, Quadrivalent, 36 Mos+, [id number] Given 08/20/2002 flu vaccination [id number] Given 10/25/1998 Tetnus Injection 17934 Given 06/13/1993 Influenza Virus Vaccine Vital Signs Date Vital Result Comment 11/05/2019 1:36pm BP Systolic 137 mmHg BP Diastolic 87 mmHg Body Temperature 98.1 F Heart Rate 85 /min Height 73.5 inches 6'1.50" Weight 199.25 lb BMI (Body Mass Index) 25.9 kg/m2 BSA (Body Surface Area) 2.16 m2 [place] body weight in kilograms 85 kg O2 % BldC Oximetry 97 % 09/14/2019 1:27pm BP Systolic 126 mmHg BP Diastolic 70 mmHg Body Temperature 97.5 F Heart Rate 82 /min Respiratory Rate 18 /min Height 73.5 inches 6'1.50" Weight 198.38 lb BMI (Body Mass Index) 25.8 kg/m2 BSA (Body Surface Area) 2.16 m2 [place] body weight in kilograms 85 kg O2 % BldC Oximetry 98 % Results Test Acquired Date Facility Test Result H/L Range Note Influenza A/B 07/21/2019 [facility] Influenza A Negative (Negative) [address] [place] [address] [phone] Influenza B Antigen Negative (Negative) 2 1 [...] influenza A and B molecular assay. Method: LoopFuse Chromatographic immunoassay Procedures Date Code Description Status 11/05/2019 43518 Debridement Nails Any Method 6 Or More Completed 11/05/2019 66260 Pare Hyperkeratotic Lesion, > 4 Completed 07/29/2019 41895 Debridement Nails Any Method 1-5 Completed 07/29/2019 14480 Pare Hyperkeratotic Lesion, 2-4 Completed Medical Devices Description No Information Available Encounters Type Date Location Provider Dx Diagnosis Office Visit 09/14/2019 Family Medicine Wilian Anders MD J06.9 Acute upper 1:[address]p [address] respiratory infection, unspecified K02.9 Dental caries, unspecified Office Visit 08/12/2019 10:45a Family Medicine Elisa Watson, J44.[address] PNP-BC, HANDS AND DIAL INSPECTOR, obstructive Ibclc pulmonary disease, unspecified H90.12 Condctv [...] J44.9 Chronic obstructive pulmonary Elisa Watson PNP-BC, HANDS AND DIAL INSPECTOR, disease, unspecified Ibclc 08/12/2019 H90.12 Conductive hearing loss, unilateral, Elisa Watson PNP-BC , HANDS AND DIAL INSPECTOR, left ear, with unrestricted hearing Ibclc on the contralateral side 08/12/2019 F17.210 Nicotine dependence, cigarettes, Elisa Watson PNP-BC, HANDS AND DIAL INSPECTOR, uncomplicated Ibclc 08/12/2019 Z23 Encounter for immunization Elisa Watson PNP-BC, HANDS AND DIAL INSPECTOR, Ibclc 08/12/2019 Z71.6 Tobacco abuse counseling Elisa Watson PNP-BC, HANDS AND DIAL INSPECTOR, Ibclc 07/29/2019 B35.1 Tinea unguium Lawrence Ramos [...] Description No Information Available Referrals Refer to Dr Reason for Referral Status Appt Date Lawrence Ramos DPM Created [address] [place] [address] [phone]
[2019-11-10 13:54] VITALS: BP 113/70
--- NOTE | 2019-11-10 15:31 | UC ---
Throat Pain/Nasal Garrick HPI - HPI Summary HPI Summary: 44 yo male with a 2-3 day hx of f/c, runny nose/productive cough and nausea no CP or SOB no vomiting/diarrhea +fisher and myalgias - History of Current Complaint Chief Complaint: UCGeneralIllness Stated Complaint: NAUSEA, LIGHT HEADED Time Seen by Provider: 11/10/19 15:06 Hx Obtained From: Patient Onset/Duration: Gradual Onset, Lasting Days Severity: Moderate Pain Intensity: 7 Pain Scale Used: 0-10 Numeric Cough: Productive Associated Signs & Symptoms: Positive: Wheezing, Sinus Discomfort, Nasal Discharge - Epiglottits Risk Factors Epiglottis Risk Factors: Negative - Allergies/Home Medications Allergies/Adverse Reactions: Allergies Allergy/AdvReac Type Severity Reaction Status Date / Time erythromycin base AdvReac GI Upset Verified 11/10/19 13:48 Home Medications: Home Medications cloZAPine [Clozaril] 4 tab PO BEDTIME 03/21/18 [History Confirmed 11/10/19] Albuterol HFA INHALER* [Ventolin HFA Inhaler*] 2 puff INH Q4H PRN 06/15/19 [ History Confirmed 11/10/19] Loratadine 10 mg PO DAILY 06/15/19 [History Confirmed 11/10/19] Carvedilol TAB* [Coreg TAB*] 6.25 mg PO BID 09/11/19 [History Confirmed 11/10/19 ] Docusate CAP* [Colace Cap*] 100 mg PO DAILY 09/11/19 [History Confirmed 11/10/19 ] Naproxen TAB* [Naprosyn 375 mg TAB*] 500 mg PO Q8H PRN 10/10/19 [History Confirmed 11/10/19] PMH/Surg Hx/FS Hx/Imm Hx Previously Healthy: Yes Respiratory History: Asthma, Bronchitis, Pneumonia - Surgical History Surgical History: Yes Surgery Procedure, Year, and Place: left knee; A BABY - HIP DYSPLASIA W/ CAST - NO SURG; Rt THUMB - REPAIR TENDON - Family History Known Family History: Positive: None, Cardiac Disease Negative: Blood Disorder - Social History Alcohol Use: Occasionally Substance Use Type: Marijuana Substance Use Comment - Amount & Last Used: occasional Smoking Status (MU): Heavy Every Day Tobacco Smoker Type: Cigarettes Amount Used/How Often: 1/2-1 PPD Have You Smoked in the Last Year: Yes Review of Systems All Other Systems Reviewed And Are Negative: Yes Constitutional: Positive: Fever, Chills, Fatigue Skin: Positive: Negative Eyes: Positive: Negative ENT: Positive: Nasal Discharge, Sinus Congestion Respiratory: Positive: Cough Cardiovascular: Positive: Negative Gastrointestinal: Positive: Negative Genitourinary: Positive: Negative Motor: Positive: Negative Neurovascular: Positive: Negative Musculoskeletal: Positive: Myalgia Neurological/Mental Status: Positive: Headache Psychological: Positive: Negative Physical Exam Triage Information Reviewed: Yes Appearance: Well-Appearing, No Pain Distress, Well-Nourished Vital Signs: Initial Vital Signs Temp 97.6 F 11/10/19 13:50 Pulse 85 11/10/19 13:50 Resp 19 11/10/19 13:50 BP 113/70 11/10/19 13:50 Pulse Ox 98 11/10/19 13:50 Vital Signs Reviewed: Yes Eyes: Positive: Conjunctiva Clear ENT: Positive: Hearing grossly normal, Nasal congestion, Nasal drainage, Uvula midline. Negative: Hoarse voice, Dental tenderness, Sinus tenderness Dental Exam: Normal Neck: Positive: Supple, Nontender, No Lymphadenopathy Respiratory: Positive: Lungs clear, Normal breath sounds, No respiratory distress, No accessory muscle use Cardiovascular: Positive: RRR, No Murmur Abdomen Description: Positive: Nontender, No Organomegaly Bowel Sounds: Positive: Present Musculoskeletal: Positive: ROM Intact, No Edema Neurological: Positive: Alert Psychological Exam: Normal Skin Exam: Normal Diagnostics - Laboratory Lab Results: influenza (-) - Radiology No standard instances Radiology Interpretation Completed By: Radiologist Summary of Radiographic Findings: NAD Throat Pain/Nasal Course/Dx - Differential Dx/Diagnosis Provider Diagnosis: Acute viral bronchitis Discharge ED - Sign-Out/Discharge Documenting (check all that apply): Patient Departure All imaging exams completed and their final reports reviewed: Yes - Discharge Plan Condition: Stable Disposition: HOME Patient Education Materials: Bronchospasm (ED) Referrals: Elisa Watson NP [Primary Care Provider] - 3 Days (if not better) Additional Instructions: rest fluids tylenol recheck in 4 days if not better - Billing Disposition and Condition Condition: STABLE Disposition: Home
[2019-11-10 15:32] LABS: Influenza A Molecular Negative (Negative); Influenza B Molecular Negative (Negative)
[2019-11-10] MEDS ORDERED: Albuterol HFA INHALER* 8 gm MDI INH ONE (15:36)
== END 2019-11-10 15:51 | disposition home or self-care (01) ==
LOC: UCCORT 12:59
DX: J20.9 Acute bronchitis, unspecified (principal); J45.909 Unspecified asthma, uncomplicated; R51 Headache; M79.10 Myalgia, unspecified site; B97.89 Other viral agents as the cause of diseases classified elsewhere; F17.210 Nicotine dependence, cigarettes, uncomplicated; Z79.899 Other long term (current) drug therapy; Z88.1 Allergy status to other antibiotic agents
CPT/HCPCS: 71046; 99212; A9270-GY; G0463; J7512